=== PATIENT | female | born 1955 | race Caucasian/White ===

== ENCOUNTER 2023-04-12 09:32 | Day surgery (SDC) | payer MEDICARE ==
[~2023-04-12 09:32] MED LIST: Lactated Ringers 1,000 ML IV SCH
[2023-04-12] MEDS: Lactated Ringers 1,000 ML IV SCH (10:05)
[2023-04-12] MEDS ORDERED: fentaNYL 100 MCG/2 ML SDV ONE (11:23)
[2023-04-12] MEDS ORDERED: Propofol 200 MG/20 ML SDV ONE ×4 (11:24→12:43)
== END 2023-04-12 14:20 | disposition home or self-care (01) ==
LOC: VM.SDS 09:32
PROVIDERS: ATTEND Family Medicine
DX: D12.3 Benign neoplasm of transverse colon (principal); D12.0 Benign neoplasm of cecum; K63.5 Polyp of colon; I10 Essential (primary) hypertension; E78.5 Hyperlipidemia, unspecified; K21.9 Gastro-esophageal reflux disease without esophagitis; Z79.899 Other long term (current) drug therapy; Z88.5 Allergy status to narcotic agent
CPT/HCPCS: 00811; 88305; J2704; J3010; J7120